=== PATIENT | female | born 1945 | race Caucasian/White ===

== ENCOUNTER 2018-07-03 20:14 | Emergency (ER) | payer OTHER ==
[~2018-07-03] VITALS: Ht 165.1 cm; Wt 81.6 kg
[2018-07-03 20:35] VITALS: Ht 165.1 cm; Wt 81.6 kg
--- NOTE | 2018-07-03 22:52 | ERD ---
ER Documentation Chief Complaint Chief Complaint weakness/fatigue/AP/CP x4 months, worse today HPI 73-year-old female with a history of hypertension and diabetes presenting with multiple complaints, including generalized weakness, fatigue, dyspnea on exertion with occasional epigastric pressure-like pain and feelings of bloating. She denies any chest pain although the triage complaint states that she complained of chest pain. Her symptoms have been progressively worsening over the past 4 months. She does have an associated cough without hemoptysis. No colored phlegm but she does have whitish phlegm that she coughs up. She was seen in multiple ERs for similar symptoms, last visit was a few days ago at [facility], where she was given a prescription for lisinopril for her hypertension and was given a diagnosis of viral URI. She states that she used to be on multiple medications that are not being given to her. Her only medications are the one for diabetes and a new prescription for lisinopril that was given a few days ago in the ER. No recent immobilization, surgeries, leg swelling, or history of blood clots. ROS All systems reviewed and are negative except as per history of present illness. PMhx/Soc History of Surgery: Yes (R foot, tubal ligation) Anesthesia Reaction: No Hx Neurological Disorder: Yes (memory loss) Hx Respiratory Disorders: No Hx Cardiac Disorders: Yes Hx Psychiatric Problems: No Hx Miscellaneous Medical Probl: Yes Hx Alcohol Use: No Hx Substance Use: No Hx Tobacco Use: No Smoking Status: Never smoker FmHx Family History: No coronary disease Physical Exam Vitals Vital Signs Date Temp Pulse Resp B/P (MAP) Pulse Ox O2 O2 Flow FiO2 Time Delivery Rate 07/03/18 Nasal 22:41 Cannula 07/03/18 98.3 72 18 151/68 95 Room Air 21:20 (95) 07/03/18 99.0 77 18 201/85 95 20:35 (123) Physical Exam Const: No acute distress. Nontoxic. Wet cough on exam Head: Atraumatic Eyes: Normal Conjunctiva ENT: Normal External Ears, Nose and Mouth. Neck: Full range of motion. No meningismus. No JVD Resp: Clear to auscultation bilaterally. No wheezing, rales, rhonchi Cardio: Regular rate and rhythm, no murmurs. 2+ distal pulses in all 4 extremities Abd: Soft, non tender, non distended. Normal bowel sounds Skin: No petechiae or rashes Back: No midline or flank tenderness Ext: No cyanosis, or edema. Diffuse muscular tenderness in bilateral lower extremities with no calf tenderness, cords, or discoloration of skin. No joint swelling. Full range of motion at all joints. Neur: Awake and alert Psych: Normal Mood and Affect Result Diagram: 07/03/18223707/03/182237 Results 24 hrs Laboratory Tests Test 07/03/18 22:12 07/03/18 22:38 Blood Gas Specimen Source Blood venous Arterial Blood Date Drawn 07/03/2018 10:30:19 PM Arterial Blood Gas Puncture Site VENOUS LINE Ruperto Test N/A Venous Blood pH 7.382 Venous Blood pCO2 (Temp Corrected) 44.4 mmHG Venous Blood pO2 (Temp Corrected) 38.4 mmHG Venous Blood HCO3 25.8 mmol/L Venous Blood Oxygen Saturation 69.4 mmHG Venous Blood Base Excess 0.4 mmol/L Venous Blood Total Hemoglobin 14.4 g/dl Venous Blood Oxyhemoglobin 69.1 % Venous Blood Methemoglobin 0.3 % Carboxyhemoglobin 0.2 % Blood Gas Temperature 37.0 C Blood Gas Modality ROOM AIR FiO2 21.0 % Blood Gas Notified Whom MM Blood Gas Notified Time 07/03/2018 10:40:58 PM White Blood Count 11.3 10^3/ul Red Blood Count 4.34 10^6/ul Hemoglobin 13.0 g/dl Hematocrit 39.4 % Mean Corpuscular Volume 90.8 fl Mean Corpuscular Hemoglobin 30.0 pg Mean Corpuscular Hemoglobin Concent 33.0 g/dl Red Cell Distribution Width 12.6 % Platelet Count 382 10^3/UL Mean Platelet Volume 9.4 fl Immature Granulocytes % 0.400 % Neutrophils % 55.8 % Lymphocytes % 34.4 % Monocytes % 7.8 % Eosinophils % 1.3 % Basophils % 0.3 % Nucleated Red Blood Cells % 0.0 /100WBC Immature Granulocytes # 0.050 10^3/ul Neutrophils # 6.3 10^3/ul Lymphocytes # 3.9 10^3/ul Monocytes # 0.9 10^3/ul Eosinophils # 0.2 10^3/ul Basophils # 0.0 10^3/ul Nucleated Red Blood Cells # 0.0 10^3/ul Prothrombin Time 11.4 Sec Prothrombin Time Ratio 0.9 INR International Normalized Ratio 0.82 Activated Partial Thromboplast Time 26.4 Sec Sodium Level 138 mmol/L Potassium Level 4.2 mmol/L Chloride Level 106 mmol/L Carbon Dioxide Level 24 mmol/L Anion Gap 8 Blood Urea Nitrogen 16 mg/dl Creatinine 0.73 mg/dl Est Glomerular Filtrat Rate mL/min mL/min Glucose Level 148 mg/dl Calcium Level 9.5 mg/dl Total Bilirubin 0.4 mg/dl Direct Bilirubin 0.00 mg/dl Indirect Bilirubin 0.4 mg/dl Aspartate Amino Transf (AST/SGOT) 25 IU/L Alanine Aminotransferase (ALT/SGPT) 26 IU/L Alkaline Phosphatase 95 IU/L Troponin I < 0.012 ng/ml B-Type Natriuretic Peptide 28 PG/ML Total Protein 8.0 g/dl Albumin 4.4 g/dl Globulin 3.60 g/dl Albumin/Globulin Ratio 1.22 Procedures/MDM EMERGENT LABS AND DIAGNOSTIC STUDIES: Lab Results above were reviewed and interpreted by me. CBC: no anemia or evidence of infection CMP: No evidence of clinically significant electrolyte abnormality, acidosis, r enal failure, hypoglycemia, liver disease, or biliary obstruction Troponin within normal limits, not indicative of cardiac ischemia BNP within normal limits VBG shows no significant abnormalities 12-lead EKG was interpreted by Iam Moise MD: Normal Sinus Rhythm Normal axis Normal intervals No acute ST or T wave changes suggestive of acute ischemia or STEMI. Radiology Results as interpreted by Radiology below were reviewed by Joe Moise MD: Chest x-ray shows no acute abnormalities Initial Nursing notes reviewed. Previous Medical Records requested via the Electronic Health Record. EMERGENCY DEPARTMENT COURSE / MEDICAL DECISION MAKING: Patient is presenting with worsening dyspnea on exertion. She is at increased risk for ACS, given her age and multiple comorbidities. She was hypertensive upon arrival but this improved without intervention. EKG showed no evidence of ischemia. I have a low suspicion for PE. No evidence of pneumonia or pneu mothorax on chest x-ray. No evidence of heart failure. However patient is high risk and I do not feel comfortable discharging her home at this time. I spoke with the [facility] [place] physician, , and he agreed to arrange for transfer of the patient to a [place] facility for further evaluation and treatment. Authorization #[id number]. From my standpoint, patient is stable for transfer. Patient and family are comfortable with this plan. Departure Diagnosis: Primary Impression: Dyspnea on exertion Additional Impression: Generalized weakness Condition: Fair CATARINA MOISE MD July 03, 2018 22:52
[2018-07-04 01:58] VITALS: BP 137/71; PULSE 92; RESP 16
== END 2018-07-04 02:03 | disposition short-term general hospital (02) ==
LOC: E/R 20:14
DX: R06.09 Other forms of dyspnea (principal); I10 Essential (primary) hypertension; E11.9 Type 2 diabetes mellitus without complications; R53.1 Weakness
CPT/HCPCS: 36415; 71045; 80053; 82803; 83880; 84484; 85025; 85610; 85730; 93005